=== PATIENT | male | born 1940 | race Caucasian/White ===

== ENCOUNTER 2024-06-25 14:55 | Inpatient (IN) ==
[2024-06-25] MEDS: Iodixanol 320 (CONTRAST) 100 ML SDV IV ONE (15:12)
[2024-06-25 15:17] LABS: ABS Lymphocytes 0.4 10^3/uL (1.0-4.8); ABS Monocytes 0.8 10^3/uL (0.0-1.1); ABS Neutrophils 8.6 10^3/uL (1.5-7.6); Eosinophil % 0.1 %; Hematocrit 39.7 % (38-53); Hemoglobin 13.4 g/dL (13.2-16.3); Lymphocyte % 4.4 %; Mean Corpuscular Hemoglobin 28.9 pg (27-33); Mean Corpuscular Hgb Conc 33.9 g/dL (31-36); Mean Corpuscular Volume 85.4 fL (80-97); Platelet Count 240 10^3/uL (150-450); Red Blood Count 4.64 10^6/uL (4.06-5.63); Red Cell Distribution Width 14.8 % (12-17); White Blood Count 9.8 10^3/uL (3.6-10.2)
[2024-06-25 15:39] LABS: ALT 11 U/L (7-52); Albumin/Globulin Ratio 1.2 (1-3); Alkaline Phosphatase 69 U/L (35-149); Blood Urea Nitrogen 33 mg/dL (6-24); CO2 Carbon Dioxide 26 mmol/L (22-32); Calcium 9.5 mg/dL (8.6-10.3); Chloride 102 mmol/L (101-111); Cholesterol 174 mg/dL; Creatinine, Serum 1.45 mg/dL (0.67-1.17); Globulin 3.3 g/dL (2-4); Glucose 158 mg/dL (70-100); HDL Cholesterol 40.1 mg/dL; LDL Cholesterol 112 mg/dL; Sodium 142 mmol/L (135-145); Total Bilirubin 0.5 mg/dL (0.2-1.0); Total Protein 7.3 g/dL (6.4-8.9); Triglycerides 110 mg/dL; eGFR CKD-EPI 48.4 (>60)
[2024-06-25 15:41] LABS: Anion Gap 14 mmol/L (2-16)
[2024-06-25 16:05] LABS: C Reactive Protein 44.45 mg/L (<8.01)
[2024-06-25] MEDS: Lactated Ringers 1000 ml BAG 1,000 ML IV ONE (16:16)
[2024-06-25 16:19] LABS: Activated Partial Thrombo Time 21.1 seconds (26.0-38.0); INR 1.1 (0.85-1.14)
[2024-06-25 16:37] LABS: Direct Bilirubin Redraw 0.1 mg/dL (0.1-0.5); Potassium Redraw 4.1 mmol/L (3.5-5.0)
[2024-06-25] MEDS ORDERED: Sulfur Hexaflouride MICROSPHR 25 MG VIAL IV PRN (17:01)
[2024-06-25] MEDS ORDERED: Dextrose 50% Syringe 50 ml 25 GM/50 ML SYRINGE IV PUSH PRN (17:59)
[2024-06-25 22:17] LABS: TSH Ultra Thyroid Stim Horm 0.49 mcIU/mL (0.34-5.60)
[2024-06-25 22:28] LABS: Vitamin B12 324 pg/mL (180-914)
[2024-06-26 04:31] LABS: Urine Appearance Extra Turbid; Urine Bilirubin Negative (Negative); Urine Blood 2+ (Negative); Urine Color Yellow; Urine Glucose 3+ (>=300 mg/dL) (Negative); Urine Ketones Negative (Negative); Urine Nitrite Negative (Negative); Urine Protein 2+ (>=100 mg/dL) (Negative); Urine Specific Gravity 1.048 (1.002-1.030); Urine Urobilinogen Negative (Negative)
[2024-06-26 05:26] LABS: Urine Bacteria Absent /HPF (Absent); Urine Red Blood Cell 3+(>10/hpf) /HPF (0-Trace); Urine White Blood Cell 3+(>20/hpf) /HPF (0-Trace)
[2024-06-26 06:23] LABS: ABS Eosinophils 0.1 10^3/uL (0.0-0.5); ABS Lymphocytes 1.1 10^3/uL (1.0-4.8); ABS Monocytes 1.2 10^3/uL (0.0-1.1); ABS Neutrophils 4.9 10^3/uL (1.5-7.6); ABS Nucleated RBC 0.01 10^3/ul; Eosinophil % 1.2 %; Hematocrit 38.4 % (38-53); Hemoglobin 12.9 g/dL (13.2-16.3); Lymphocyte % 14.6 %; Mean Corpuscular Hemoglobin 28.8 pg (27-33); Mean Corpuscular Hgb Conc 33.5 g/dL (31-36); Mean Platelet Volume 7.3 fL (7.5-11.2); Nucleated Red Blood Cells % 0.1 %/100WBC (0.0-0.8); Platelet Count 195 10^3/uL (150-450); Red Blood Count 4.47 10^6/uL (4.06-5.63); Red Cell Distribution Width 14.3 % (12-17); White Blood Count 7.4 10^3/uL (3.6-10.2)
[2024-06-26 06:58] LABS: Calcium 9.2 mg/dL (8.6-10.3); Creatinine, Serum 1.23 mg/dL (0.67-1.17); Magnesium 1.8 mg/dL (1.9-2.7); Potassium 3.9 mmol/L (3.5-5.0)
[2024-06-26] MEDS: Magnesium Sulfate 2 gm BAG 2 GM/50 ML BAG IVPB ONE (15:42)
[2024-06-26] MEDS: Enoxaparin 40 MG/0.4 ML SYR SUBCUT SCH (17:09)
[2024-06-27 08:52] LABS: Hematocrit 44.8 % (38-53); Hemoglobin 14.9 g/dL (13.2-16.3); Mean Corpuscular Hemoglobin 28.7 pg (27-33); Mean Corpuscular Hgb Conc 33.3 g/dL (31-36); Red Blood Count 5.21 10^6/uL (4.06-5.63); Red Cell Distribution Width 14.1 % (12-17); White Blood Count 8.5 10^3/uL (3.6-10.2)
[2024-06-27 09:00] LABS: Anion Gap 9 mmol/L (2-16); Blood Urea Nitrogen 26 mg/dL (6-24); CO2 Carbon Dioxide 27 mmol/L (22-32); Calcium 8.7 mg/dL (8.6-10.3); Chloride 99 mmol/L (101-111); Creatinine, Serum 0.96 mg/dL (0.67-1.17); Glucose 98 mg/dL (70-100); Sodium 135 mmol/L (135-145); eGFR CKD-EPI 79.4 (>60)
[2024-06-27 09:12] LABS: ABS Basophils 0.1 10^3/uL (0.0-0.1); ABS Eosinophils 0.3 10^3/uL (0.0-0.5); ABS Lymphocytes 1.7 10^3/uL (1.0-4.8); ABS Monocytes 1.3 10^3/uL (0.0-1.1); ABS Neutrophils 5.1 10^3/uL (1.5-7.6); ABS Nucleated RBC 0.02 10^3/ul; Eosinophil % 3.3 %; Lymphocyte % 19.7 %; Nucleated Red Blood Cells % 0.2 %/100WBC (0.0-0.8); Platelet Count Platelets clumped. 10^3/uL (150-450)
[2024-06-27 09:58] LABS: Magnesium 2.1 mg/dL (1.9-2.7)
[2024-06-28] MEDS ORDERED: Senna TAB 8.6 mg TAB PO PRN (22:37)
[2024-06-28] MEDS ORDERED: Magnesium Hydroxide LIQ 30 ML UDC PO PRN (22:37)
[2024-06-28] MEDS: Polyethylene Glycol 3350 17 GM PACKET PO PRN (22:50)
[2024-06-29] MEDS: Magnesium Hydroxide LIQ 30 ML UDC PO SCH (08:41)
[2024-06-29 17:19] VITALS: BP 171/89
== END 2024-06-29 18:00 | disposition home or self-care (01) | DRG 65 ==
LOC: ED 14:55 → EDHOLD 14:55 → SUATTDRO 17:01 → OBSVTOIN 17:01 → MEDTELE 06-26 08:16
PROVIDERS: ADMIT Student in an Organized Health Care Education/Training Program; ATTEND Hospitalist